=== PATIENT | female | born 1940 | race Caucasian/White ===

== ENCOUNTER 2021-10-10 10:37 | Outpatient (REF) | payer MEDICARE, SELFPAY ==
[2021-10-10 12:30] LABS: MANUAL DIFF FLAG NO
[2021-10-10 12:38] LABS: Basophils Percent Auto 0.2 % (0-2); Eosinophils Absolute Auto 0.1 X10*3/uL (0.0-0.4); Eosinophils Percent Auto 1.2 % (0-4); Hematocrit 35.7 % (37.0-47.0); Hemoglobin 11.6 g/dl (12.0-16.0); Imm Gran Abs Auto 0.02 X10*3/uL (0.00-0.03); Imm Gran Pct Auto 0.2 % (0.0-0.4); Lymphocytes Absolute Auto 1.8 X10*3/uL (1.2-4.9); Lymphocytes Percent Auto 16.3 % (20-40); Mean Corpuscular HGB Conc 32.5 g/dl (31.0-35.0); Mean Corpuscular Volume 89.3 fL (80.0-98.0); Mean Platelet Volume 9.6 fL (9.4-12.3); Monocytes Absolute Auto 0.9 X10*3/uL (0.1-1.2); Monocytes Percent Auto 7.6 % (2-11); Neutrophils Absolute Auto 8.4 x10*3/uL (2.0-8.3); Neutrophils Percent Auto 74.5 % (45-73); Platelet Count 331 X10*3/uL (160-400); Red Cell Distribution Width 12.6 % (11.0-16.0); White Blood Count 11.2 X10*3/uL (4.8-10.8)
[2021-10-10 13:04] LABS: Alanine Aminotransferase 11 U/L (0-31); Albumin Level 4.1 g/dL (3.5-5.0); Alkaline Phosphatase 80 U/L (39-117); Anion Gap 15 (12-20); Aspartate Amino Transferase 15 U/L (5-31); Bilirubin Total 1.2 mg/dL (0.0-1.0); Blood Urea Nitrogen 22 mg/dL (9-16); Calcium 9.9 mg/dL (8.4-10.2); Carbon Dioxide 29 mmol/L (22-29); Chloride 102 mmol/L (96-108); Cholesterol 153 mg/dL; Estimated Glomerular Filt Rate 59; Glucose Fasting 124 mg/dL (60-99); HDL Cholesterol 55 mg/dL; LDL Cholesterol Calculated 82 mg/dl; Potassium 3.9 mmol/L (3.3-5.1); Rheumatoid Factor < 15.0 IU/mL (<15.0); Sodium 142 mmol/L (135-145); Total Protein 6.9 g/dL (6.5-8.0); Triglycerides 84 mg/dL
[2021-10-10 13:25] LABS: Vitamin B12 461 pg/mL (200-900)
[2021-10-10 13:26] LABS: Vitamin D 25-OH Total 21.7 ng/mL (>30)
[2021-10-13 11:26] LABS: Anti Nuclear Antibody Screen NEGATIVE (NEGATIVE)
== END 2021-10-10 10:38 | disposition home or self-care (01) ==
LOC: HO.HMGCLDS 10:37
PROVIDERS: PCP Internal Medicine; Visit Provider Internal Medicine
DX: I10 Essential (primary) hypertension (principal); E78.00 Pure hypercholesterolemia, unspecified; M79.10 Myalgia, unspecified site
CPT/HCPCS: 36415; 80053; 80061; 82306; 82607; 85025; 86038; 86039; 86140; 86431

== ENCOUNTER 2021-10-20 10:27 | Outpatient (REF) | payer MEDICARE, SELFPAY ==
[2021-10-20 11:34] LABS: Estimated Average Glucose 120 mg/dL; Hemoglobin A1c % 5.8 %
[2021-10-20 11:50] LABS: Anion Gap 14 (12-20); Blood Urea Nitrogen 18 mg/dL (9-16); C Reactive Protein 6.24 mg/dL (< or = 0.50); Calcium 9.3 mg/dL (8.4-10.2); Carbon Dioxide 28 mmol/L (22-29); Chloride 103 mmol/L (96-108); Estimated Glomerular Filt Rate 56; Glucose Random 113 mg/dL (60-115); Potassium 3.8 mmol/L (3.3-5.1); Sodium 141 mmol/L (135-145)
[2021-10-20 12:27] LABS: Erythrocyte Sedimentation Rate 62 MM/HR (0-20)
== END 2021-10-20 10:28 | disposition home or self-care (01) ==
LOC: HO.HMGCLDS 10:27
PROVIDERS: PCP Internal Medicine; Visit Provider Internal Medicine
DX: M79.10 Myalgia, unspecified site (principal); R79.82 Elevated C-reactive protein (CRP); R73.9 Hyperglycemia, unspecified; I10 Essential (primary) hypertension
CPT/HCPCS: 36415; 80048; 82550; 83036; 85652; 86140

== ENCOUNTER 2021-10-31 10:26 | Outpatient (REF) | payer MEDICARE, SELFPAY ==
[2021-10-31 14:45] LABS: Erythrocyte Sedimentation Rate 58 MM/HR (0-20)
== END 2021-10-31 10:27 | disposition home or self-care (01) ==
LOC: HO.HMGCLDS 10:26
PROVIDERS: PCP Internal Medicine; Visit Provider Internal Medicine
DX: R79.82 Elevated C-reactive protein (CRP) (principal); M79.10 Myalgia, unspecified site
CPT/HCPCS: 36415; 85652; 86140

== ENCOUNTER 2022-01-06 09:35 | Outpatient (REF) | payer MEDICARE, SELFPAY ==
[2022-01-06 11:33] LABS: MANUAL DIFF FLAG NO
[2022-01-06 11:42] LABS: Basophils Percent Auto 0.2 % (0-2); Eosinophils Percent Auto 0.3 % (0-4); Hematocrit 39.9 % (37.0-47.0); Imm Gran Abs Auto 0.07 X10*3/uL (0.00-0.03); Imm Gran Pct Auto 0.6 % (0.0-0.4); Lymphocytes Absolute Auto 4.2 X10*3/uL (1.2-4.9); Lymphocytes Percent Auto 38.3 % (20-40); Mean Corpuscular HGB Conc 32.6 g/dl (31.0-35.0); Mean Corpuscular Hemoglobin 29.3 pg (27.0-33.0); Mean Corpuscular Volume 89.9 fL (80.0-98.0); Mean Platelet Volume 9.4 fL (9.4-12.3); Monocytes Absolute Auto 0.8 X10*3/uL (0.1-1.2); Monocytes Percent Auto 7.2 % (2-11); Neutrophils Absolute Auto 5.9 x10*3/uL (2.0-8.3); Neutrophils Percent Auto 53.4 % (45-73); Platelet Count 285 X10*3/uL (160-400); Red Blood Count 4.44 X10*6/uL (4.20-5.50); Red Cell Distribution Width 14.4 % (11.0-16.0)
[2022-01-06 12:23] LABS: Alanine Aminotransferase 27 U/L (0-31); Albumin Level 4.6 g/dL (3.5-5.0); Alkaline Phosphatase 64 U/L (39-117); Aspartate Amino Transferase 24 U/L (5-31); Bilirubin Total 1.1 mg/dL (0.0-1.0); Blood Urea Nitrogen 26 mg/dL (9-16); C Reactive Protein 0.32 mg/dL (< or = 0.50); Calcium 9.8 mg/dL (8.4-10.2); Estimated Glomerular Filt Rate 37; Glucose Random 110 mg/dL (60-115); Total Protein 7.2 g/dL (6.5-8.0)
[2022-01-06 12:40] LABS: Anion Gap 16 (12-20); Carbon Dioxide 29 mmol/L (22-29); Chloride 100 mmol/L (96-108); Potassium 2.8 mmol/L (3.3-5.1); Sodium 142 mmol/L (135-145)
== END 2022-01-06 09:36 | disposition home or self-care (01) ==
LOC: HO.HMGCLDS 09:35
PROVIDERS: PCP Internal Medicine; Visit Provider Internal Medicine
DX: I10 Essential (primary) hypertension (principal); M35.3 Polymyalgia rheumatica
CPT/HCPCS: 36415; 80053; 85025; 86140

== ENCOUNTER 2022-01-27 08:47 | Outpatient (REF) | payer MEDICARE, SELFPAY ==
[2022-01-27 12:00] LABS: Anion Gap 14 (12-20); Blood Urea Nitrogen 28 mg/dL (9-16); Calcium 9.6 mg/dL (8.4-10.2); Carbon Dioxide 28 mmol/L (22-29); Chloride 102 mmol/L (96-108); Estimated Glomerular Filt Rate 36; Glucose Random 137 mg/dL (60-115); Potassium 3.8 mmol/L (3.3-5.1); Sodium 140 mmol/L (135-145)
== END 2022-01-27 08:48 | disposition home or self-care (01) ==
LOC: HO.HMGCLDS 08:47
PROVIDERS: PCP Internal Medicine; Visit Provider Internal Medicine
DX: I12.9 Hypertensive chronic kidney disease with stage 1 through stage 4 chronic kidney disease, or unspecified chronic kidney disease (principal); E87.6 Hypokalemia
CPT/HCPCS: 36415; 80048

== ENCOUNTER 2022-09-23 11:17 | Outpatient (REF) | payer MEDICARE, SELFPAY ==
--- NOTE | ~2022-09-23 | XR_ITS ---
EXAMINATION: XR LUMBOSACRAL SPINE CLINICAL INFORMATION: Lower back pain COMPARISON: None TECHNIQUE: Three views of the lumbosacral spine. FINDINGS: No acute fracture or subluxation. Grade 1 anterolisthesis of L3 on L4. Alignment otherwise maintained. Disc space narrowing at L3-L4 and L4-L5. Diffuse facet arthropathy. Mild levoscoliosis centered at L2-L3. The sacroiliac joints are symmetric. The sacrum is intact. Normal bowel gas pattern. XR/XR lumbar spine 2-3V IMPRESSION: Moderate degenerative changes of the lumbar spine.
== END 2022-09-23 11:18 | disposition home or self-care (01) ==
LOC: HO.HMGCX 11:17
PROVIDERS: PCP Internal Medicine; Visit Provider Internal Medicine
DX: M54.50 Low back pain, unspecified (principal)
CPT/HCPCS: 72100

== ENCOUNTER 2022-12-23 07:31 | Outpatient (REF) | payer MEDICARE, SELFPAY ==
[2022-12-23 11:19] LABS: MANUAL DIFF FLAG NO
[2022-12-23 11:25] LABS: Basophils Percent Auto 0.2 % (0-2); Eosinophils Absolute Auto 0.1 X10*3/uL (0.0-0.4); Eosinophils Percent Auto 1.1 % (0-4); Hematocrit 39.2 % (37.0-47.0); Hemoglobin 12.5 g/dl (12.0-16.0); Imm Gran Abs Auto 0.03 X10*3/uL (0.00-0.03); Imm Gran Pct Auto 0.3 % (0.0-0.4); Lymphocytes Absolute Auto 3.7 X10*3/uL (1.2-4.9); Lymphocytes Percent Auto 42.8 % (20-40); Mean Corpuscular HGB Conc 31.9 g/dl (31.0-35.0); Mean Corpuscular Hemoglobin 28.9 pg (27.0-33.0); Mean Corpuscular Volume 90.5 fL (80.0-98.0); Mean Platelet Volume 9.9 fL (9.4-12.3); Monocytes Absolute Auto 0.6 X10*3/uL (0.1-1.2); Monocytes Percent Auto 6.7 % (2-11); Neutrophils Absolute Auto 4.3 x10*3/uL (2.0-8.3); Neutrophils Percent Auto 48.9 % (45-73); Platelet Count 327 X10*3/uL (160-400); Red Blood Count 4.33 X10*6/uL (4.20-5.50); Red Cell Distribution Width 12.5 % (11.0-16.0); White Blood Count 8.7 X10*3/uL (4.8-10.8)
[2022-12-23 11:43] LABS: Appearance Urine Cloudy; Color Urine Yellow; Glucose Urine UA Negative (Negative); Leukocyte Esterase Urine Moderate (2+) (Negative); Nitrite Urine Negative (Negative); PH 5.5 (5.0-9.0); Specific Gravity - Urine 1.015 (1.005-1.025); UMIC TRIGGER UA YES; Urine Blood Small (1+) (Negative); Urine Ketones Negative (Negative); Urine Protein Negative (Neg-Trace)
[2022-12-23 12:04] LABS: Bacteria Urine Trace (None Seen); Hyaline Casts Urine 0-2 /LPF (0-2); RBC Urine 0-2 /HPF (0-2)
[2022-12-23 12:05] LABS: Albumin Level 4.1 g/dL (3.5-5.0); Anion Gap 12 (12-20); Blood Urea Nitrogen 26 mg/dL (9-16); Calcium 9.4 mg/dL (8.4-10.2); Carbon Dioxide 32 mmol/L (22-29); Chloride 104 mmol/L (96-108); Estimated Glomerular Filt Rate 37; Magnesium 2.1 mg/dL (1.6-2.6); Potassium 3.8 mmol/L (3.3-5.1); Sodium 144 mmol/L (135-145); Vitamin D 25-OH Total 19.5 ng/mL (>30)
[2022-12-23 12:19] LABS: Creatinine Urine 172.77 mg/dL; Microalbum/Creatinine Ratio Ur 27.7 ug/mg cr; Protein/Creatinine Ratio, Ur 0.14 (<0.2); Total Protein Urine Random 25 mg/dL (<12)
[2022-12-25 05:33] LABS: HBS Num1 0.47 mIU/mL (0-7.99); HBc Num1 0.06 S/CO (0.00-0.79); Hepatitis B Core Antibody Nonreactive (Nonreactive); ~HepC Num1 0.06 S/CO (0.00-0.79); ~Hepatitis B Surface Antibody NONREACTIVE (Nonreactive); ~Hepatitis C Antibody Nonreactive (Nonreactive)
[2022-12-25 12:24] LABS: Calcium (PTHI) 9.4 mg/dL (8.6-10.4); PTHI 77 pg/mL (16-77)
[2022-12-25 14:47] LABS: Complement C3 138 mg/dL
[2022-12-26 19:48] LABS: Prot Elec - Alpha1 0.3 g/dL (0.2-0.3); Prot Elec - Alpha2 0.9 g/dL (0.5-0.9); Prot Elec - Beta 1 0.5 g/dL (0.4-0.6); Prot Elec - Beta 2 0.3 g/dL (0.2-0.5); Prot Elec - Gamma 0.6 g/dL (0.8-1.7); Prot Elec - Total Protein 6.6 g/dL (6.1-8.1)
[2022-12-28 11:54] LABS: Anti Nuclear Antibody Screen NEGATIVE (NEGATIVE)
[2022-12-31 18:04] LABS: Kappa, Serum 145 mg/dL (176-443); Lambda, Serum 66 mg/dL (91-240)
== END 2022-12-23 07:32 | disposition home or self-care (01) ==
LOC: HO.HMGCLDS 07:31
PROVIDERS: PCP Internal Medicine; Visit Provider Internal Medicine Nephrology
DX: E11.22 Type 2 diabetes mellitus with diabetic chronic kidney disease (principal); N18.32 Chronic kidney disease, stage 3b; N25.0 Renal osteodystrophy; R82.90 Unspecified abnormal findings in urine
CPT/HCPCS: 36415; 80051; 81001; 82040; 82043; 82306; 82310; 82565; 83735; 83883; 83970; 84100; 84156; 84165; 84520; 85025; 86038; 86039; 86160; 86704; 86706; 86803; 87086

== ENCOUNTER 2023-02-25 14:54 | Outpatient (REF) | payer MEDICARE, SELFPAY ==
--- NOTE | ~2023-02-25 | US_ITS ---
EXAMINATION: US RETROPERITONEAL LIMITED (RENAL ONLY) CLINICAL INFORMATION: Chronic kidney disease, stage 3b. COMPARISON: Urinary bladder dated 07/10/2020. Renals only ultrasound dated 05/03/2020. TECHNIQUE: Real-time imaging of the kidneys. FINDINGS: RIGHT KIDNEY: 9.5 x 4.5 x 4.6 cm (SAG x AP x TRV). The kidney is normal in size, contour, and echogenicity. Renal cortical thickness is normal. No calculi or focal parenchymal lesions. No hydronephrosis. LEFT KIDNEY: 10.1 x 4.0 x 4.7 cm (SAG x AP x TRV). The kidney is normal in size, contour, and echogenicity. Renal cortical thickness is normal. No calculi or focal parenchymal lesions. No hydronephrosis. US/US renal BI IMPRESSION: No renal calculi or hydronephrosis of either kidney.
== END 2023-02-25 14:55 | disposition home or self-care (01) ==
LOC: HO.HMGCX 14:54
PROVIDERS: PCP Internal Medicine; Visit Provider Internal Medicine Nephrology
DX: I12.9 Hypertensive chronic kidney disease with stage 1 through stage 4 chronic kidney disease, or unspecified chronic kidney disease (principal); E11.22 Type 2 diabetes mellitus with diabetic chronic kidney disease; N18.32 Chronic kidney disease, stage 3b; N25.0 Renal osteodystrophy
CPT/HCPCS: 76775

== ENCOUNTER 2023-03-01 19:19 | Outpatient (REF) | payer MEDICARE, SELFPAY ==
--- NOTE | ~2023-03-01 | MR_ITS ---
EXAMINATION: MR LUMBAR SPINE WITHOUT CONTRAST CLINICAL INFORMATION: Lower back pain, right leg weakness, numbness, and pain COMPARISON: None TECHNIQUE: MRI of the lumbar spine was obtained using routine sequences without contrast. FINDINGS: Leftward convexity of the lumbar spine centered at L3. There is some left lateral listhesis of L3 on L4. Grade 1 anterolisthesis of L3 on L4 No suspicious marrow signal or focal osseous lesion. The vertebral body heights are maintained. Multilevel disc desiccation and height loss The conus medullaris terminates at the level of L1-L2. The distal spinal cord is normal in appearance. The cauda equina nerve roots appear normal. There is asymmetric fatty atrophy of the right lumbar paravertebral musculature Limited evaluation of the intra-abdominal structures without significant abnormalities. The abdominal aorta is of normal contour and caliber. SPINAL LEVELS: L1-L2: No significant spinal canal or neuroforaminal narrowing. Mild facet arthropathy. L2-L3: Moderate to severe facet arthropathy with small bilateral joint effusions, with mentum flavum thickening, shallow disc bulge. Mild central spinal canal stenosis. No significant neural foraminal narrowing. L3-L4: Anterolisthesis with posterior disc uncovering and superimposed right eccentric disc bulge. Severe facet arthropathy, right greater than left. Ligamentum flavum thickening. Severe spinal canal stenosis mild left and severe right neural foraminal narrowing with impingement of the exiting right L3 nerve root. L4-L5: Moderate facet arthropathy, ligamentum flavum thickening, left eccentric disc bulge. Left greater than right subarticular zone narrowing. Mild central spinal canal stenosis. Mild right and moderate left neural foraminal narrowing with likely extraforaminal impingement of the left L4 nerve root by a lateral disc osteophyte complex. L5-S1: Moderate facet arthropathy with left greater than right joint effusions. Left eccentric disc osteophyte complex. There is partial effacement of the thecal sac related to prominent epidural fat. Moderate left neural foraminal narrowing with likely extraforaminal impingement of the left L5 nerve root related to a left lateral disc osteophyte complex. MR/MR lumbar spine wo con IMPRESSION: 1. Leftward convexity of the lumbar spine centered at L3 with left lateral listhesis of L3 on L4 and grade 1 anterolisthesis of L3 on L4. 2. At L3-L4, there is severe spinal canal stenosis and severe right neural foraminal narrowing with impingement of the exiting right L3 nerve root. 3. At L4-L5, there is left greater than right subarticular zone narrowing and moderate left neural foraminal narrowing with likely extraforaminal impingement of the left L4 nerve root by a lateral disc osteophyte complex. 4. At L5-S1, there is partial effacement of the thecal sac related to prominent epidural fat and moderate left neural foraminal narrowing with likely extraforaminal impingement of the left L5 nerve root by a left lateral disc osteophyte complex.
== END 2023-03-01 19:20 | disposition home or self-care (01) ==
LOC: HO.MRI 19:19
PROVIDERS: PCP Internal Medicine; Visit Provider Internal Medicine
DX: M54.16 Radiculopathy, lumbar region (principal)
CPT/HCPCS: 72148

== ENCOUNTER 2023-05-17 20:16 | Inpatient (IN) | payer MEDICARE, SELFPAY ==
--- NOTE | ~2023-05-17 | XR_ITS ---
EXAMINATION: XR CHEST CLINICAL INFORMATION: New onset of shortness of breath and atrial fibrillation with weakness COMPARISON: None available. TECHNIQUE: Frontal view of the chest was obtained. FINDINGS: No significant abnormality is noted involving the heart, lungs, mediastinum, bony thorax or soft tissues. Heart size normal and there is no evidence of CHF or pleural effusions. Degenerative changes are seen in both shoulders. XR/XR chest 1V IMPRESSION: No acute intrathoracic disease.
[2023-05-17 20:29] VITALS: BP 105/41; PULSE 130; O2SAT 98
--- NOTE | 2023-05-17 20:29 | ECG_ITS ---
Test Reason : AFIB Blood Pressure : / mmHG Vent. Rate : 100 BPM Atrial Rate : 000 BPM P-R Int : 000 ms QRS Dur : 070 ms QT Int : 346 ms P-R-T Axes : 000 062 147 degrees QTc Int : 446 ms Atrial fibrillation Nonspecific ST and T wave abnormality Abnormal ECG No previous ECGs available Referred By: Generic ED Physician Electronically Signed By:GUILLERMO ANGELO
[2023-05-17 20:36] VITALS: BP 109/47; PULSE 103; RESP 16; O2SAT 99; BMI 31.4
--- NOTE | 2023-05-17 21:00 | ED.GENADULT ---
HPI - General Adult General Chief complaint: Arrhythmia/Palpitations Stated complaint: Weakness x1-2 wks Time Seen by Provider: 05/17/23 20:36 Source: patient and EMS Mode of arrival: EMS History of Present Illness HPI narrative: 82-year-old female who is brought in by EMS from home with 1 and half weeks of increasing weakness, decreased oral intake. However, when I speak with the patient she denies any shortness of breath or chest pain, denies any fevers or chills, nausea, vomiting or abdominal discomfort. When asked if she has any current complaints she denies everything and states that she does not know why she is here. Related Data Allergies Allergy/AdvReac Type Severity Reaction Status Date / Time No Known Allergies Allergy Verified 05/17/23 20:44 Review of Systems Review of Systems: Pertinent positives and negatives as stated in [facility] Past Medical History Source: nursing notes reviewed Social History Social History Alcohol intake: never Smoked in Last 30 Days: No Use of substances other than those prescribed or required for medical reasons: No Advance Directives: No Advance Directives Information Provided: No Physical Exam ED Vital Signs: Vital Signs - 24 hr 05/17/23 20:36 Pulse Rate 103 H Respiratory Rate 16 Blood Pressure 109/47 L Pulse Oximetry 99 Oxygen Delivery Method Room Air BMI result Body Mass Index 31.4 VITAL SIGNS: Reviewed. GENERAL: Well developed, well nourished, in no acute distress. HEAD: Normocephalic/atraumatic EYES: PERRLA, EOMI EARS: Ext canals without abnormality OROPHARYNX: no oral lesions noted, posterior pharynx clear LUNGS: Normal breath sounds. No adventitious sounds or accessory muscle use. SpO2<99> CARDIOVASCULAR: Regular rate and rhythm without noted murmurs, no JVD or lower extremity edema. ABDOMEN: Soft, non-tender, non-distended with bowel sounds. MUSCULOSKELETAL: No tenderness, deformities, or effusions noted on gross inspection. EXTREMITIES: No cyanosis, clubbing or edema. SKIN: Inspection of the skin reveals no rashes NEUROLOGIC: Alert and oriented x 3. Strength and sensation to light touch were grossly intact x 4. Medications Administered Discontinued Medications Generic Name Dose Route Start Last Admin Trade Name Freq PRN Reason Stop Dose Admin Metoprolol Tartrate 2.5 mg 05/17/23 20:55 05/17/23 21:38 Metoprolol Tartrate 5 Mg/5 Ml Vial IVPUSH 05/17/23 20:56 Not Given ONCE ONE Medical Decision Making Medical Decision Making MDM Narrative: 82-year-old female who arrives appearing comfortable and has no acute complaints, will evaluate for reports of weakness and decreased oral intake. DDX: Infection, anemia, electrolyte abnormality. I reviewed all investigations and there is no leukocytosis or left shift, there is a new normocytic anemia without thrombocytopenia and coagulation studies are within normal limits. Chemistry indices are without electrolyte abnormalities, there is no ANA CRISTINA there is an elevated BUN but appears to be chronically stable. Initial high sensitivity troponin is 189.4 but patient did arrive in atrial fibrillation with RVR with resolution of the rapid ventricular rate, however her blood pressure has continued to trend downward and will resuscitate with 1 L of IV fluids. Troponin will be repeated, there were no obvious ischemic changes on patient's EKG. In addition, she has no complaints of chest pain. Signed out to Dr. Oconnor. -follow-up urinalysis, 2nd troponin, blood pressure response to 1 L IV fluids Differential Diagnosis Differential Diagnoses: The differential diagnosis associated with the presentation includes Please see the discussion above Admission/Observation Consideration of admission/observation: Escalation of care including admission/observation considered Please see the discussion above Lab Data 05/17/23 20:58 05/17/23 20:58 Labs: Lab Results 05/17/23 05/17/23 05/17/23 Range/Units 20:58 20:58 20:58 WBC 9.7 (4.8-10.8) X10*3/uL RBC 3.45 L D (4.20-5.50) X10*6/uL Hgb 10.6 L (12.0-16.0) g/dl Hct 32.8 L (37.0-47.0) % MCV 95.1 (80.0-98.0) fL MCH 30.7 (27.0-33.0) pg MCHC 32.3 (31.0-35.0) g/dl RDW 15.6 (11.0-16.0) % Plt Count 198 D (160-400) X10*3/uL MPV 9.7 (9.4-12.3) fL Immature Gran % (Auto) 0.9 H (0.0-0.4) % Neut % (Auto) 72.9 (45-73) % Lymph % (Auto) 18.0 L (20-40) % [place] % (Auto) 7.9 (2-11) % Eos % (Auto) 0.2 (0-4) % Baso % (Auto) 0.1 (0-2) % Lymph # (Auto) 1.7 (1.2-4.9) X10*3/uL [place] # (Auto) 0.8 (0.1-1.2) X10*3/uL Eos # (Auto) 0.0 (0.0-0.4) X10*3/uL Baso # (Auto) 0.0 (0.0-0.2) X10*3/uL Abs Immat Gran (auto) 0.09 H (0.00-0.03) X10*3/uL Absolute Neuts (auto) 7.1 (2.0-8.3) x10*3/uL Absolute Nucleated RBC 0.060 H (0.0-0.012) X10*3/uL Nucleated RBC % (auto) 0.6 H (0.0-0.2) /100WBC PT (11.1-13.3) SEC INR (0.9-1.1) Sodium 142 (135-145) mmol/L Potassium 3.7 (3.3-5.1) mmol/L Chloride 105 (96-108) mmol/L Carbon Dioxide 24 (22-29) mmol/L Anion Gap 17 (12-20) BUN 32 H (9-16) mg/dL Creatinine 1.05 (0.5-1.4) mg/dL Estim Creat Clear Calc 37.0 Estimated GFR 50 Random Glucose 81 (60-115) mg/dL Calcium 9.4 (8.4-10.2) mg/dL Troponin I High Sens 189.4 H* (<3.5-17.0) ng/L 05/17/23 Range/Units 20:58 WBC (4.8-10.8) X10*3/uL RBC (4.20-5.50) X10*6/uL Hgb (12.0-16.0) g/dl Hct (37.0-47.0) % MCV (80.0-98.0) fL MCH (27.0-33.0) pg MCHC (31.0-35.0) g/dl RDW (11.0-16.0) % Plt Count (160-400) X10*3/uL MPV (9.4-12.3) fL Immature Gran % (Auto) (0.0-0.4) % Neut % (Auto) (45-73) % Lymph % (Auto) (20-40) % [place] % (Auto) (2-11) % Eos % (Auto) (0-4) % Baso % (Auto) (0-2) % Lymph # (Auto) (1.2-4.9) X10*3/uL [place] # (Auto) (0.1-1.2) X10*3/uL Eos # (Auto) (0.0-0.4) X10*3/uL Baso # (Auto) (0.0-0.2) X10*3/uL Abs Immat Gran (auto) (0.00-0.03) X10*3/uL Absolute Neuts (auto) (2.0-8.3) x10*3/uL Absolute Nucleated RBC (0.0-0.012) X10*3/uL Nucleated RBC % (auto) (0.0-0.2) /100WBC PT 10.7 L (11.1-13.3) SEC INR 0.9 (0.9-1.1) Sodium (135-145) mmol/L Potassium (3.3-5.1) mmol/L Chloride (96-108) mmol/L Carbon Dioxide (22-29) mmol/L Anion Gap (12-20) BUN (9-16) mg/dL Creatinine (0.5-1.4) mg/dL Estim Creat Clear Calc Estimated GFR Random Glucose (60-115) mg/dL Calcium (8.4-10.2) mg/dL Troponin I High Sens (<3.5-17.0) ng/L Independent Interpretation I performed an independent interpretation of an: EKG Interpretation: Atrial fibrillation with RVR, HR-100, no STEMI, QRS/QTC is within normal limits. Discharge Plan Discharge Clinical Impression: Weakness Patient Disposition: Still a Patient
[2023-05-17 21:07] LABS: MANUAL DIFF FLAG NO
[2023-05-17 21:10] LABS: Basophils Percent Auto 0.1 % (0-2); Eosinophils Percent Auto 0.2 % (0-4); Hematocrit 32.8 % (37.0-47.0); Hemoglobin 10.6 g/dl (12.0-16.0); Imm Gran Abs Auto 0.09 X10*3/uL (0.00-0.03); Imm Gran Pct Auto 0.9 % (0.0-0.4); Lymphocytes Absolute Auto 1.7 X10*3/uL (1.2-4.9); Mean Corpuscular HGB Conc 32.3 g/dl (31.0-35.0); Mean Corpuscular Hemoglobin 30.7 pg (27.0-33.0); Mean Corpuscular Volume 95.1 fL (80.0-98.0); Mean Platelet Volume 9.7 fL (9.4-12.3); Monocytes Absolute Auto 0.8 X10*3/uL (0.1-1.2); Monocytes Percent Auto 7.9 % (2-11); NRBC Pct Auto 0.6 /100WBC (0.0-0.2); Neutrophils Absolute Auto 7.1 x10*3/uL (2.0-8.3); Neutrophils Percent Auto 72.9 % (45-73); Platelet Count 198 X10*3/uL (160-400); Red Blood Count 3.45 X10*6/uL (4.20-5.50); Red Cell Distribution Width 15.6 % (11.0-16.0); White Blood Count 9.7 X10*3/uL (4.8-10.8)
[2023-05-17 21:16] LABS: INTERNATIONAL NORM RATIO 0.9 (0.9-1.1); Prothrombin Time 10.7 SEC (11.1-13.3)
[2023-05-17 21:21] LABS: Anion Gap 17 (12-20); Blood Urea Nitrogen 32 mg/dL (9-16); Calcium 9.4 mg/dL (8.4-10.2); Carbon Dioxide 24 mmol/L (22-29); Chloride 105 mmol/L (96-108); Estimated Glomerular Filt Rate 50; Glucose Random 81 mg/dL (60-115); Potassium 3.7 mmol/L (3.3-5.1); Sodium 142 mmol/L (135-145)
[2023-05-17 21:39] LABS: Troponin-I High Sensitivity 189.4 ng/L (<3.5-17.0)
[2023-05-17] MEDS: 0.9 % Sodium Chloride 1,000 ML 999 ML IV (23:59)
[2023-05-18] VITALS (8 sets, daily range): BP systolic 106–172; BP diastolic 48–97; PULSE 65–113; RESP 10–22; TEMP 36.1–36.9; O2SAT 93–99; BMI 32.9
[2023-05-18 00:33] LABS: Troponin-I High Sensitivity 159.3 ng/L (<3.5-17.0)
[2023-05-18 02:15] LABS: Appearance Urine Cloudy; Color Urine Yellow; Glucose Urine UA Negative (Negative); Leukocyte Esterase Urine Moderate (2+) (Negative); Nitrite Urine Positive (Negative); PH 5.5 (5.0-9.0); UMIC TRIGGER UACC YES; Urine Blood Trace (Negative); Urine Ketones Negative (Negative); Urine Protein 30 (1+) mg/dL (Neg-Trace)
[2023-05-18 02:24] LABS: Bacteria Urine 4+ (None Seen); RBC Urine 0-2 /HPF (0-2); UACC Culture Trigger YES; WBC Urine 21-50 /HPF (0-5)
[2023-05-18] MEDS: 0.9 % Sodium Chloride 1,000 ML 200 ML IVCONT (02:58)
[2023-05-18] MEDS: cefTRIAXone sodium 1 GM in 0.9 % Sodium Chloride 50 ML IV ×2 (02:59→20:30)
--- NOTE | 2023-05-18 03:20 | P.HPHOSP_ITS ---
History of Present Illness Date of Service: 05/18/23 Chief Complaint: AMS This is a 82-year-old female with pertinent history of hzb-hibgchu-evfxvyggj diabetes mellitus, mood disorder, chronic back pain, essential hypertension who was sent to the emergency department for evaluation of altered mentation and generalized weakness. Patient is a poor historian and does not know why she is in the hospital. She is only oriented to self. History obtained by ER provider. Patient was noted to be intermittently confused by family and she was sent for further evaluation. Also noted to have poor appetite, increased lethargy and generalized weakness. Unable to obtain review of systems. In the emergency department, urine was concerning for UTI and patient found to be in AFib with RVR Review of Systems Review of Systems: Yes Unobtainable due to mental status PMFSH Medical History Chronic back pain Mood disorder Non-insulin dependent type 2 diabetes mellitus Pertinent family history: Unable to obtain and not significant due to age Social History Alcohol intake: never Smoked in Last 30 Days: No Use of substances other than those prescribed or required for medical reasons: No Advance Directives: No Advance Directives Information Provided: No Meds Allergies Allergy/AdvReac Type Severity Reaction Status Date / Time No Known Allergies Allergy Verified 05/17/23 20:44 Active Medications: Current Medications Sodium Chloride (Ns) 1,000 mls @ 200 mls/hr IVCONT .Q5H ONE Stop: 05/18/23 07:29 Last Admin: 05/18/23 02:58 Dose: 200 mls/hr Physical Exam Vital Signs and Narrative: Vital Signs: Last Vital Signs Temp 98.1 F 05/18/23 02:09 Pulse 113 H 05/18/23 02:09 Resp 16 05/18/23 02:09 BP 106/57 L 05/18/23 02:09 Pulse Ox 97 05/18/23 02:09 O2 Del Method Room Air 05/18/23 02:09 BMI result Body Mass Index 31.4 Elderly female lying in bed in no distress Neck supple, no JVD Irregularly irregular, S1-S2 heard Regular breath sounds bilaterally, no wheezing or crackles appreciated Abdomen soft nontender, no guarding, no rigidity Patient is awake, alert and oriented to self, disoriented to place, time and person ; no focal motor deficit Results Labs 05/17/23 20:58 05/17/23 20:58 Labs: Laboratory Results - last 24 hr 05/17/23 05/17/23 05/17/23 20:58 20:58 20:58 MCV 95.1 MCH 30.7 MCHC 32.3 RDW 15.6 Plt Count 198 D MPV 9.7 Immature Gran % (Auto) 0.9 H Neut % (Auto) 72.9 Lymph % (Auto) 18.0 L [place] % (Auto) 7.9 Eos % (Auto) 0.2 Baso % (Auto) 0.1 Lymph # (Auto) 1.7 [place] # (Auto) 0.8 Eos # (Auto) 0.0 Baso # (Auto) 0.0 Abs Immat Gran (auto) 0.09 H Absolute Neuts (auto) 7.1 Absolute Nucleated RBC 0.060 H Nucleated RBC % (auto) 0.6 H PT 10.7 L INR 0.9 Anion Gap 17 Estim Creat Clear Calc 37.0 Estimated GFR 50 Random Glucose 81 Calcium 9.4 Urine Color Urine Appearance Urine pH Ur Specific [place] Urine Protein Urine Glucose (UA) Urine Ketones Urine Blood Urine Nitrite Ur Leukocyte Esterase Urine RBC Urine WBC Ur Squamous Epith Cells Urine Bacteria Hyaline Casts 05/18/23 02:08 MCV MCH MCHC RDW Plt Count MPV Immature Gran % (Auto) Neut % (Auto) Lymph % (Auto) [place] % (Auto) Eos % (Auto) Baso % (Auto) Lymph # (Auto) [place] # (Auto) Eos # (Auto) Baso # (Auto) Abs Immat Gran (auto) Absolute Neuts (auto) Absolute Nucleated RBC Nucleated RBC % (auto) PT INR Anion Gap Estim Creat Clear Calc Estimated GFR Random Glucose Calcium Urine Color Yellow Urine Appearance Cloudy Urine pH 5.5 Ur Specific [place] 1.020 Urine Protein 30 (1+) H Urine Glucose (UA) Negative Urine Ketones Negative Urine Blood Trace H Urine Nitrite Positive H Ur Leukocyte Esterase Moderate (2+) H Urine RBC 0-2 Urine WBC 21-50 H Ur Squamous Epith Cells 3-5 Urine Bacteria 4+ Hyaline Casts 3-5 Imaging Radiologist's Impressions: Impressions Chest X-Ray 05/17/23 20:45 IMPRESSION: No acute intrathoracic disease. Assessment and Plan (1) Acute UTI: Status: Acute (2) Atrial fibrillation with RVR: Status: Acute (3) Encephalopathy: Status: Acute Plan This is a 82-year-old female with pertinent history of rel-sykislq-ljszcuixo diabetes mellitus, mood disorder, chronic back pain, essential hypertension who was sent to the emergency department for evaluation of altered mentation and generalized weakness. #. Acute metabolic encephalopathy due to acute UTI. Will admit patient and initiate empiric IV antibiotics. Follow urine culture. Monitor mentation #. Generalized weakness in the setting of above. Consulted PT to evaluate and treat #. AFib with RVR. ?new onset. Patient given IV metoprolol in the ER. Obtaining TSH and echocardiogram. Consulting cardiology. Chads Vasc score 5 #. Mood disorder. Continue home mood stabilizers #. Vvk-jewphee-pwzlbfzef diabetes mellitus type 2. Hold glipizide. Initiating Accu-Cheks with sliding scale insulin Med rec pending DVT prophylaxis: Lovenox DNR/DNI Admit as inpatient and will require two night minimum hospital stay for IV antibiotics Time Spent With Patient Time: Total time managing care of this patient today ____ minutes. Quality Stroke Does the patient have a stroke diagnosis?: No VTE Prior VTE?: No VTE Risk Level:: Medical - moderate - high VTE Device Contraindication: Treatment Not Indicated VTE Drug Contraindication: N/A - Med Ordered
[2023-05-18 04:05] LABS: Thyroid Stimulating Hormone 3.07 uIU/mL (0.32-4.0)
[2023-05-18 05:36] LABS: MANUAL DIFF FLAG NO
[2023-05-18 05:37] LABS: Basophils Percent Auto 0.1 % (0-2); Eosinophils Percent Auto 0.3 % (0-4); Hematocrit 31.4 % (37.0-47.0); Imm Gran Abs Auto 0.07 X10*3/uL (0.00-0.03); Imm Gran Pct Auto 0.7 % (0.0-0.4); Lymphocytes Absolute Auto 2.1 X10*3/uL (1.2-4.9); Lymphocytes Percent Auto 20.3 % (20-40); Mean Corpuscular HGB Conc 31.8 g/dl (31.0-35.0); Mean Corpuscular Hemoglobin 30.2 pg (27.0-33.0); Mean Corpuscular Volume 94.9 fL (80.0-98.0); Mean Platelet Volume 10.2 fL (9.4-12.3); Monocytes Absolute Auto 0.7 X10*3/uL (0.1-1.2); Monocytes Percent Auto 6.7 % (2-11); NRBC Pct Auto 0.4 /100WBC (0.0-0.2); Neutrophils Absolute Auto 7.3 x10*3/uL (2.0-8.3); Neutrophils Percent Auto 71.9 % (45-73); Platelet Count 179 X10*3/uL (160-400); Red Blood Count 3.31 X10*6/uL (4.20-5.50); Red Cell Distribution Width 15.5 % (11.0-16.0); White Blood Count 10.1 X10*3/uL (4.8-10.8)
[2023-05-18] MEDS: Acetaminophen 325 MG TABLET 650 MG PO (05:43)
[2023-05-18 05:57] LABS: Anion Gap 16 (12-20); Blood Urea Nitrogen 27 mg/dL (9-16); Calcium 8.4 mg/dL (8.4-10.2); Carbon Dioxide 18 mmol/L (22-29); Chloride 111 mmol/L (96-108); Creatinine Clr Calc Pharmacy 48.5; Estimated Glomerular Filt Rate > 60; Glucose Random 87 mg/dL (60-115); Potassium 3.3 mmol/L (3.3-5.1); Sodium 142 mmol/L (135-145)
[2023-05-18 07:36] LABS: Glucose, Whole Blood 104 mg/dL (60-115)
[2023-05-18] MEDS: 0.9 % Sodium Chloride Flush 3 ML SYRINGE IVFLUSH ×2 (08:00→20:30)
--- NOTE | 2023-05-18 08:02 | PC.NURSE ---
patient resting in stretcher, alert and oriented eating breakfast. patient respirations equal and unlabored, no signs of distress.
--- NOTE | 2023-05-18 08:11 | PC.NURSE ---
patient found to have saturated sacrum bandage, bandage removed revealing two wounds on either side of her coccyx. new bandage applied to coccyx. pads changed under patient
--- NOTE | 2023-05-18 08:11 | MHC.EDTECH ---
Assisted to clean pt. Applied new pad under pt. Repositioned to comfort. Bed in low, locked position. Call nogueira in reach, able to make needs known.
[2023-05-18] MEDS: Enoxaparin Sodium 40 MG/0.4 ML SYRINGE SUBCUT (08:47)
--- NOTE | 2023-05-18 09:30 | P.CONCA_ITS ---
History of Present Illness History of Present Illness Date of Service: 05/18/23 Chief complaint: Altered mentation Narrative: This is a cardiology consultation regarding atrial fibrillation. It seems that patient was actually sent to the hospital for evaluation of altered mentation/generalized weakness. According to H and P, described to be a poor historian and she did not know why she was not hospital and she was only oriented to self. She was apparently found to be confused by family and then sent in. However, patient seems to be better than as described. She states that she is here because ' her brain failed'. She is aware of the fact that she is actually at the hospital. Otherwise, no clear cut complaints like angina, shortness of breath or palpitations or in fact anything cardiac sounding. In this above admission, she was also found to be having atrial fibrillation rapid rate and there was a question of if it was new onset. Hence we have been consulted. It seems that she got IV metoprolol in the ER. She is now in sinus rhythm. Has no cardiac symptoms at all. Review of Systems Review of Systems: Yes all other systems are reviewed and are negative Constitutional: Constitutional: Reports as per HPI and Reports no additional constitutional complaints Eyes: Eyes: Reports as per HPI and Denies no additional eye complaints ENT: Denies system reviewed and no additional complaints, except as documented and Reports as per HPI Cardiovascular: Cardiovascular: Reports as per HPI, Reports no additional cardiovascular complaints, Denies acrocyanosis, Denies cool extremities, Denies chest pain, Denies leg edema, Denies lightheadedness, Denies palpitations and Denies dyspnea Respiratory: Respiratory: Reports as per HPI, Denies no additional respiratory complaints and Denies dyspnea Gastrointestinal: Gastrointestinal: Reports as per HPI and Denies no additional gastrointestinal complaints Genitourinary: Genitourinary: Reports as per HPI Musculoskeletal: Musculoskeletal: Reports no additional musculoskeletal complaints and Reports as per HPI Integumentary/Breasts: Skin/Breast: Reports system reviewed and no additional complaints, except as docu Neurologic: Reports system reviewed and no additional complaints, except as documented and Reports as per HPI Psychiatric: Psychiatric: Reports no additional psychiatric complaints and Reports as per HPI Endocrine: Endocrine: Reports no additional endocrine complaints, Reports as per HPI and Denies palpitations Hematologic/Lymphatic: Hematologic/Lymphatic: Reports no additional hematologic/lymphatic complaints and Reports as per HPI Allergic/Immunologic: Allergic/Immunologic: Reports no additional allergic/immunologic complaints and Reports as per [facility] Past Medical History Medical History Chronic back pain Mood disorder Non-insulin dependent type 2 diabetes mellitus Family History Family History Unknown No problems noted. Social History Social History Alcohol intake: never Smoked in Last 30 Days: No Use of substances other than those prescribed or required for medical reasons: No Advance Directives: No Advance Directives Information Provided: No Meds Allergies Allergy/AdvReac Type Severity Reaction Status Date / Time No Known Allergies Allergy Verified 05/17/23 20:44 Active Medications: Current Medications Acetaminophen (Acetaminophen 325 Mg Tablet) 650 mg PO Q6H PRN PRN Reason: Pain, Mild (Pain Scale 1-3) Last Admin: 05/18/23 05:43 Dose: 650 mg Dextrose (Dextrose 50 % 25 Gm/50 Ml Syringe) 25 gm IVPUSH Q15M PRN; Protocol PRN Reason: per Hypoglycemia Standing Ord. Enoxaparin Sodium (Enoxaparin Sodium 40 Mg/0.4 Ml Syringe) 40 mg SUBCUT Q24H ZAFAR Last Admin: 05/18/23 08:47 Dose: 40 mg Glucose (Glucose Gel 15 Gm Gel..Gram.) 15 gm PO Q15M PRN; Protocol PRN Reason: per Hypoglycemia Standing Ord. Ceftriaxone Sodium 1 gm/ (Sodium Chloride) 50 mls @ 100 mls/hr IV BEDTIME [facility] Insulin Human Lispro (Insulin Lispro 100 Unit/Ml 3 Ml Vial) 0 unit SUBCUT QIDACHS [facility]; Protocol Last Admin: 05/18/23 07:57 Dose: Not Given Melatonin (Melatonin 3 Mg Tablet) 6 mg PO BEDTIME PRN PRN Reason: Insomnia Ondansetron HCl (Ondansetron Hcl 4 Mg/2 Ml Vial) 4 mg IVPUSH Q8H PRN PRN Reason: Nausea and Vomiting Pharmacy Consult (Consult Rx Perform Med Rec) 1 each MISCELLANE ONCE ONE Stop: 05/18/23 09:22 Sodium Chloride (0.9 % Sodium Chloride Flush 3 Ml Syringe) 3 ml IVFLUSH QSHIFT [facility] Last Admin: 05/18/23 08:00 Dose: 3 ml Physical Exam Vital Signs: Vital Signs: Last Vital Signs Temp 98.4 F 05/18/23 08:00 Pulse 75 05/18/23 08:00 Resp 11 L 05/18/23 08:00 BP 141/48 H 05/18/23 08:00 Pulse Ox 93 05/18/23 08:00 O2 Del Method Room Air 05/18/23 08:00 BMI result Body Mass Index 31.4 Const: General: comfortable and no acute distress Orientation/consciousness: patient oriented x3 HEENT: Other: Unremarkable Head: Yes normal to inspection Neck: Neck: Yes normal visual inspection Chest: Chest palpation & inspection: normal inspection of the chest Resp: Auscultation: clear to auscultation bilaterally Cardio: Palpation: normal PMI Heart sounds: S1 normal heart sound present, S2 normal heart sound present, no gallops, no murmurs and no rubs GI: Palpation (GI): Soft to palpation Back/Spine/Pelvis: Other: unremarkable Skin: General skin exam: no rashes or lesions noted Neuro: General: patient oriented x3 Extrem: General: Yes normal to inspection Psych: Mental Status: mental status grossly normal Objective Labs and Meds 05/18/23 05:08 05/18/23 05:08 Lab results: Laboratory Results - last 24 hr 05/17/23 05/17/23 05/17/23 20:58 20:58 20:58 WBC 9.7 RBC 3.45 L D Hgb 10.6 L Hct 32.8 L MCV 95.1 MCH 30.7 MCHC 32.3 RDW 15.6 Plt Count 198 D MPV 9.7 Immature Gran % (Auto) 0.9 H Neut % (Auto) 72.9 Lymph % (Auto) 18.0 L [place] % (Auto) 7.9 Eos % (Auto) 0.2 Baso % (Auto) 0.1 Lymph # (Auto) 1.7 [place] # (Auto) 0.8 Eos # (Auto) 0.0 Baso # (Auto) 0.0 Abs Immat Gran (auto) 0.09 H Absolute Neuts (auto) 7.1 Absolute Nucleated RBC 0.060 H Nucleated RBC % (auto) 0.6 H PT INR Sodium 142 Potassium 3.7 Chloride 105 Carbon Dioxide 24 Anion Gap 17 BUN 32 H Creatinine 1.05 Estim Creat Clear Calc 37.0 Estimated GFR 50 POC Glucose Random Glucose 81 Calcium 9.4 Troponin I High Sens 189.4 H* TSH 3.07 Urine Color Urine Appearance Urine pH Ur Specific [place] [employer] Urine Protein Urine Glucose (UA) Urine Ketones Urine Blood Urine Nitrite Ur Leukocyte Esterase Urine RBC Urine WBC Ur Squamous Epith Cells Urine Bacteria Hyaline Casts 05/17/23 05/17/23 05/18/23 20:58 23:45 02:08 WBC RBC Hgb Hct MCV MCH MCHC RDW Plt Count MPV Immature Gran % (Auto) Neut % (Auto) Lymph % (Auto) [place] % (Auto) Eos % (Auto) Baso % (Auto) Lymph # (Auto) [place] # (Auto) Eos # (Auto) Baso # (Auto) Abs Immat Gran (auto) Absolute Neuts (auto) Absolute Nucleated RBC Nucleated RBC % (auto) PT 10.7 L INR 0.9 Sodium Potassium Chloride Carbon Dioxide Anion Gap BUN Creatinine Estim Creat Clear Calc Estimated GFR POC Glucose Random Glucose Calcium Troponin I High Sens 159.3 H* TSH Urine Color Yellow Urine Appearance Cloudy Urine pH 5.5 Ur Specific [place] [employer] 1.020 Urine Protein 30 (1+) H Urine Glucose (UA) Negative Urine Ketones Negative Urine Blood Trace H Urine Nitrite Positive H Ur Leukocyte Esterase Moderate (2+) H Urine RBC 0-2 Urine WBC 21-50 H Ur Squamous Epith Cells 3-5 Urine Bacteria 4+ Hyaline Casts 3-5 05/18/23 05/18/23 05/18/23 05:08 05:08 07:32 WBC 10.1 RBC 3.31 L Hgb 10.0 L Hct 31.4 L MCV 94.9 MCH 30.2 MCHC 31.8 RDW 15.5 Plt Count 179 MPV 10.2 Immature Gran % (Auto) 0.7 H Neut % (Auto) 71.9 Lymph % (Auto) 20.3 [place] % (Auto) 6.7 Eos % (Auto) 0.3 Baso % (Auto) 0.1 Lymph # (Auto) 2.1 [place] # (Auto) 0.7 Eos # (Auto) 0.0 Baso # (Auto) 0.0 Abs Immat Gran (auto) 0.07 H Absolute Neuts (auto) 7.3 Absolute Nucleated RBC 0.040 H Nucleated RBC % (auto) 0.4 H PT INR Sodium 142 Potassium 3.3 Chloride 111 H Carbon Dioxide 18 L Anion Gap 16 BUN 27 H Creatinine 0.80 Estim Creat Clear Calc 48.5 Estimated GFR > 60 POC Glucose 104 Random Glucose 87 Calcium 8.4 D Troponin I High Sens TSH Urine Color Urine Appearance Urine pH Ur Specific [place] [employer] Urine Protein Urine Glucose (UA) Urine Ketones Urine Blood Urine Nitrite Ur Leukocyte Esterase Urine RBC Urine WBC Ur Squamous Epith Cells Urine Bacteria Hyaline Casts ECG Interpretation: EKG with atrial fibrillation; nonspecific ST-T changes; some underlying artifact. Ventricular rate 100/Min. Imaging Radiologist's impression: Impressions Chest X-Ray 05/17/23 20:45 IMPRESSION: No acute intrathoracic disease. Assessment and Plan (1) Atrial fibrillation with RVR: Status: Acute (2) Encephalopathy: Status: Acute (3) Elevated troponin: Status: Acute Plan In the EKG, atrial fibrillation with slightly rapid rate. However, on telemetry she is back in sinus rhythm. High sensitivity troponins are 189 and 159. Serum creatinine is 0.8. Chest x-ray shows no acute disease. No CHF/pleural effusions. We can get an echocardiogram for cardiac function assessment. Need to discuss with family. If no major fall issues or other bleeding concerns, then can start Eliquis. With regard to the elevated troponins, probable underlying coronary disease at her age. However, based on comorbidities as well as age, frailty, will hold off any further ischemia workup in this setting. d/w Dr. Farah Time Spent With Patient Time: Total time managing care of this patient today ____ minutes. Procedures Date of Service Date of Service: 05/18/23
--- NOTE | 2023-05-18 09:50 | PM.EVENT ---
Event Note Date of Service: 05/18/23 Event Note: Seen and evaluated more alert and oriented this morning AFib RvR converted back to Sinus Pending Echo Cardio eval, start AC after discussing risks She has hx of falling, to check PT eval Continue antibiotics pending cultures Time Spent With Patient Time: Total time managing care of this patient today ____ minutes.
--- NOTE | 2023-05-18 09:59 | PHA.MEDREC ---
Pharmacy Consult ? Medication Reconciliation Pharmacy has completed the medication reconciliation. Spoke with daughter. Knew all medications except prednisone dose. Will call me later when home with dose and will update then
[2023-05-18 11:51] LABS: Glucose, Whole Blood 85 mg/dL (60-115)
[2023-05-18 16:24] LABS: Glucose, Whole Blood 84 mg/dL (60-115)
[2023-05-18] MEDS: oxyCODONE HCl Immed Release 5 MG TABLET PO (18:39)
[2023-05-18] MEDS: atenoloL 100 MG TABLET PO (18:40)
[2023-05-18 20:09] LABS: Glucose, Whole Blood 127 mg/dL (60-115)
[2023-05-19 03:33] VITALS: BP 137/77; PULSE 65; RESP 18; TEMP 36.1; O2SAT 98
--- NOTE | 2023-05-19 07:00 | CA_ITS ---
Transthoracic Echocardiogram Patient (Last, First, Middle): Trinh Daniel G Gender: Female Date of : 1940 Age: 82 Procedure Date: 05/19/2023 Procedure Type: Transthoracic Echocardiogram Location: [facility] [place] Height: 154.94 cm Weight: 75.3 kg BSA: 1.75 m2 Heart Rate: 69 bpm BP: 132 / 55 mmHg Baggage And Mail Agent: SB Referring MD: Karina Conklin MD Symptoms: afib Study Quality: Adequate w contrast ECG Rhythm: Sinus Conclusions: - The left ventricular systolic function is normal. The visually estimated ejection fraction is >70%. - No obvious valvular pathology seen on this study. Findings Procedure Information Contrast agent, definity, is being given per protocol without apparent complications. Left Ventricle Normal left ventricular cavity size. The left ventricular systolic function is normal. The visually estimated ejection fraction is >70%. There is no evidence of regional wall motion abnormalities. Evidence suggests grade I (mild) diastolic dysfunction. There is mild septal asymmetric hypertrophy. Right Ventricle Normal right ventricular cavity size and systolic function. Atria Both atria are normal in size. Aortic Valve There is a normal trileaflet aortic valve. There is mild calcification of the aortic valve. There is no aortic valve stenosis. There is trace (trivial) aortic valve regurgitation. Mitral Valve The mitral valve appears normal. There is no mitral valve regurgitation. There is no mitral valve stenosis. Pulmonic Valve The pulmonic valve is likely normal. Tricuspid Valve Normal tricuspid valve structure. There is trace tricuspid valve regurgitation. Tricuspid regurgitation envelope is inadequate for calculation of right ventricular systolic pressure. Great Vessels The asc aorta is normal in size. Venous The inferior vena cava is normal in size and collapses greater than 50% with inspiration. Pericardium/Pleural Prominent epicardial adipose tissue noted. There is no evidence of pericardial effusion. Prior Study Comparison No prior study available for comparison. Recommendations, Care & Conclusions No obvious valvular pathology seen on this study. Measurements 2D Linear Measurements IVSd: 1.23 0.6-0.9/0.6-1.0 cm LVIDd: 4.25 3.9-5.3/4.2-5.9 cm LVIDd Index: 2.43 2.4-3.2/2.2-3.1 cm/m2 LVIDs: 2.19 2.0-3.6 cm LVPWd: 0.96 0.7-1.1 cm LA Diam: 3.10 2.7-3.8/3.0-4.0 cm LAIDs Index: 1.77 1.5-2.3 cm/m2 LV Mass: 198.07 67-162/88-224 g LV Mass Index: 113.18 43-95/49-115 g/m2 LVOT Diam: 2.00 3.0+(-)1.3 cm 2D Systolic Function EF 4C: 77.20 >55% EF 2C: 76.50 >55% EF BiP: 77.00 >55% Mitral Valve MV Pk E: 0.72 MV PK A: 0.78 MV Decel Time: 176.00 E/A: 0.90 E'Lateral: 5.98 E'Medial: 5.00 E/E' Med: 14.50 E/E' Lat: 12.10 PHT: 51.00 MVA PHT: 4.31 Decel Lamar: 4.12 Aortic Valve AoV Pk Pawel: 1.15 AoV Pk Grad: 5.00 PATI: 3.45 AI Pk Pawel: 4.52 AI Lamar: 1.49 LVOT LVOT Pk Pawel: 1.12 LVOT Mn Pawel: 0.83 LVOT VTI: 0.27 LVOT Pk Grad: 5.00 LVOT Mn Grad: 3.00 LVOT Diam: 2.00 LVOT Area: 3.14 Diastolic Function MV Pk E: 0.72 MV Pk A: 0.78 E/A: 0.90 E'Medial: 5.00 E/E' Med: 14.50 E' Laterial: 5.98 E/E' Lat: 12.10 Right Ventricle TAPSE (mm): 18.90 TVS' Pawel: 11.50 Tricuspid Valve RA Press: 3.00 Great Vessels Aorta Sinus of Valsalva: 2.80 2.0-3.5 cm Ao Asc: 3.30 2.1-3.4 cm Pulmonary Valve PV Pk Pawel: 0.76 Peak PV Grad: 2.00 Updated in Other Vendor System with Status of Final Chris Ochoa MD electronically signed on 05/19/2023 12:34:25 PM with status of Final
[2023-05-19 07:08] VITALS: BP 139/71; PULSE 66; RESP 18; TEMP 36.7; O2SAT 98
[2023-05-19 07:54] LABS: Glucose, Whole Blood 81 mg/dL (60-115)
[2023-05-19] MEDS: Apixaban 5 MG TABLET PO ×2 (09:10→20:47)
[2023-05-19] MEDS: Potassium Chloride ER 20 MEQ TAB.ER.PRT PO (09:10)
[2023-05-19] MEDS: Escitalopram Oxalate 10 MG TABLET PO (09:10)
[2023-05-19] MEDS: 0.9 % Sodium Chloride Flush 3 ML SYRINGE IVFLUSH ×2 (09:10→20:49)
[2023-05-19] MEDS: atenoloL 100 MG TABLET PO (09:10)
[2023-05-19] MEDS: Atorvastatin Calcium 40 MG TABLET PO (09:10)
--- NOTE | 2023-05-19 10:24 | MHC.CM.PN ---
This CM called pts daughter Norma Yang [phone] for CM intake due tp pts confusion and altered mental status, left message, awaiting return call.
--- NOTE | 2023-05-19 10:36 | PM.PNCARD ---
Subjective Subjective Date of Service: 05/19/23 Interval history: She states she is feeling okay. However, seems confused. Review of Systems Review of Systems Yes all other systems are reviewed and are negative Constitutional: Reports as per HPI and Reports no additional constitutional complaints Eyes: Reports as per HPI and Denies no additional eye complaints Denies system reviewed and no additional complaints, except as documented and Reports as per HPI Cardiovascular: Reports as per HPI, Reports no additional cardiovascular complaints, Denies acrocyanosis, Denies cool extremities, Denies chest pain, Denies leg edema, Denies lightheadedness, Denies palpitations and Denies dyspnea Respiratory: Reports as per HPI, Denies no additional respiratory complaints and Denies dyspnea Gastrointestinal: Reports as per HPI and Denies no additional gastrointestinal complaints Genitourinary: Reports as per HPI Musculoskeletal: Reports no additional musculoskeletal complaints and Reports as per HPI Skin/Breast: Reports system reviewed and no additional complaints, except as docu Reports system reviewed and no additional complaints, except as documented and Reports as per HPI Psychiatric: Reports no additional psychiatric complaints and Reports as per HPI Endocrine: Reports no additional endocrine complaints, Reports as per HPI and Denies palpitations Hematologic/Lymphatic: Reports no additional hematologic/lymphatic complaints and Reports as per HPI Allergic/Immunologic: Reports no additional allergic/immunologic complaints and Reports as per HPI Physical Exam Vital Signs: Last Vital Signs Temp 98.0 F 05/19/23 07:08 Pulse 66 05/19/23 07:08 Resp 18 05/19/23 07:08 BP 139/71 05/19/23 07:08 Pulse Ox 98 05/19/23 07:08 O2 Del Method Room Air 05/19/23 07:08 BMI result Body Mass Index 32.9 Const General: comfortable and no acute distress Orientation/consciousness: No patient oriented x3 HEENT Other: Unremarkable Head: Yes normal to inspection Neck Neck: Yes normal visual inspection Chest Chest palpation & inspection: normal inspection of the chest Resp Auscultation: clear to auscultation bilaterally Cardio Palpation: normal PMI Heart sounds: S1 normal heart sound present, S2 normal heart sound present, no gallops, no murmurs and no rubs GI Palpation (GI): Soft to palpation Back/Spine/Pelvis Other: unremarkable Skin General skin exam: no rashes or lesions noted Neuro General: No patient oriented x3 Extrem General: Yes normal to inspection Psych Mental Status: mental status grossly abnormal Objective Labs and Meds 05/18/23 05:08 05/18/23 05:08 Lab results: Laboratory Results - last 24 hr 05/18/23 05/18/23 05/18/23 11:47 15:57 19:25 POC Glucose 85 84 127 H 05/19/23 07:13 POC Glucose 81 Progress Note: A&P Assessment and plan (1) Atrial fibrillation with RVR: Status: Acute (2) Encephalopathy: Status: Acute (3) Elevated troponin: Status: Acute Plan Cardiac studies reviewed. On telemetry, she is back in normal sinus rhythm. High sensitivity troponins are 189 and 159. Serum creatinine is 0.8. Chest x-ray shows no acute disease. No CHF/pleural effusions. Echocardiogram is still pending. Continue beta-blockers currently on. As long as family is comfortable anticoagulation and no significant fall risk, okay for anticoagulation. With regard to the elevated troponins, probable underlying coronary disease at her age. However, based on comorbidities as well as age, frailty, will hold off any further ischemia workup in this setting. Time Spent With Patient Time: Total time managing care of this patient today 45 minutes. This includes time spent in review of chart, laboratory data, imaging studies, review of telemetry, counseling patient, discussion with hospitalist, RN, documentation, coordination of care. Progress Note: Quality Stroke Does the patient have a stroke diagnosis?: No Procedures Date of Service Date of Service: 05/19/23
--- NOTE | 2023-05-19 11:33 | MHC.CM.PN ---
Patient is documented to be confused; CM spoke with Daughter/Norma @ [phone] and addressed IMM with her (original to be mailed certified letter to Norma and a copy has been placed on the chart). Patient lives in an in-law/basement apartment of her Daughter/Norma's home and she uses a walker to assist with mobility. Patient has a RN visit 1/week (unsure from which agency) and has outpatient POT in [place]. PT is recommending STR and [facility] is the first choice SNF. CM has initiated and will follow for dc planning. Patient is Covid vax x3 and her PCP is Dr. Jordy Tavares.
--- NOTE | 2023-05-19 11:39 | HO.PM.IMPN ---
Subjective Subjective Date of Service: 05/19/23 Interval History: no complaints Physical Exam Vital Signs: Vital Signs: Last Vital Signs Temp 98.0 F 05/19/23 07:08 Pulse 66 05/19/23 07:08 Resp 18 05/19/23 07:08 BP 139/71 05/19/23 07:08 Pulse Ox 98 05/19/23 07:08 O2 Del Method Room Air 05/19/23 07:08 BMI result Body Mass Index 32.9 alert, poor insight, Objective Data Active Medications Acetaminophen (Acetaminophen 325 Mg Tablet) 650 mg PO Q6H PRN PRN Reason: Pain, Mild (Pain Scale 1-3) Last Admin: 05/18/23 05:43 Dose: 650 mg Documented By: JOVANA Apixaban (Apixaban 5 Mg Tablet) 5 mg PO BID [facility] Last Admin: 05/19/23 09:10 Dose: 5 mg Documented By: YONG Atenolol (Atenolol 100 Mg Tablet) 100 mg PO DAILY [facility]; Protocol Last Admin: 05/19/23 09:10 Dose: 100 mg Documented By: YONG Atorvastatin Calcium (Atorvastatin Calcium 40 Mg Tablet) 40 mg PO DAILY [facility] Last Admin: 05/19/23 09:10 Dose: 40 mg Documented By: YONG Dextrose (Dextrose 50 % 25 Gm/50 Ml Syringe) 25 gm IVPUSH Q15M PRN; Protocol PRN Reason: per Hypoglycemia Standing Ord. Escitalopram Oxalate (Escitalopram Oxalate 10 Mg Tablet) 10 mg PO DAILY [facility] Last Admin: 05/19/23 09:10 Dose: 10 mg Documented By: YONG Glucose (Glucose Gel 15 Gm Gel..Gram.) 15 gm PO Q15M PRN; Protocol PRN Reason: per Hypoglycemia Standing Ord. Ceftriaxone Sodium 1 gm/ (Sodium Chloride) 50 mls @ 100 mls/hr IV BEDTIME [facility] Last Infusion: 05/18/23 21:22 Dose: 0 mls/hr Documented By: MAURA Insulin Human Lispro (Insulin Lispro 100 Unit/Ml 3 Ml Vial) 0 unit SUBCUT QIDACHS [facility]; Protocol Last Admin: 05/19/23 07:15 Dose: Not Given Documented By: YONG Non-Admin Reason: No Insulin Coverage Melatonin (Melatonin 3 Mg Tablet) 6 mg PO BEDTIME PRN PRN Reason: Insomnia Ondansetron HCl (Ondansetron Hcl 4 Mg/2 Ml Vial) 4 mg IVPUSH Q8H PRN PRN Reason: Nausea and Vomiting Oxycodone HCl (Oxycodone Hcl Immed Release 5 Mg Tablet) 5 mg PO Q6H PRN PRN Reason: Pain, Severe (Pain Scale 7-10) Last Admin: 05/18/23 18:39 Dose: 5 mg Documented By: WESLY Potassium Chloride (Potassium Chloride Er 20 Meq Tab.Er.Prt) 20 meq PO DAILY [facility] Last Admin: 05/19/23 09:10 Dose: 20 meq Documented By: YONG Sodium Chloride (0.9 % Sodium Chloride Flush 3 Ml Syringe) 3 ml IVFLUSH QSHIFT [facility] Last Admin: 05/19/23 09:10 Dose: 3 ml Documented By: YONG Labs 05/18/23 05:08 05/18/23 05:08 Labs: Laboratory Results - last 24 hr 05/18/23 05/18/23 05/18/23 11:47 15:57 19:25 POC Glucose 85 84 127 H 05/19/23 07:13 POC Glucose 81 Microbiology Microbiology Results: Microbiology 05/18/23 Unknown Urine Culture - Preliminary Urine clean catch - Urine ríos top Gram negative [place] Assessment and Plan (1) Elevated troponin: Status: Acute Plan 82F PMH DM, mood disorder, chronic back pain, htn, presented with ams, found to have uti and new onset afib acute metaboli encephalopathy due to UTI Continue IV ceftriaxone, follow-up cultures, urine culture growing Gram-negative rods New onset atrial fibrillation with rapid ventricular response Converted to sinus Continue atenolol 100 mg daily, started on apixaban 5 mg b.i.d. Mood disorder Continue Lexapro Diabetes Insulin DVT prophylaxis-on Eliquis DNR/DNI reason for continued hospitalization:awaiting cultures Time Spent With Patient Time: Total time managing care of this patient today ____ minutes. Quality Stroke Does the patient have a stroke diagnosis?: No VTE Prior VTE?: No VTE Risk Level:: Medical - moderate - high VTE Device Contraindication: Treatment Not Indicated VTE Drug Contraindication: N/A - Med Ordered
--- NOTE | 2023-05-19 11:39 | MHC.CM.PN ---
Patient's Daughter/Margaret @ [phone] is HCP.
[2023-05-19 11:57] VITALS: BMI 32.9
[2023-05-19 11:58] VITALS: BP 149/66; PULSE 60; RESP 18; TEMP 36.6; O2SAT 98
--- NOTE | 2023-05-19 11:59 | MHC.CLN ---
PT WITH INCREASED NUTRITION RISK R/T PRESSURE INJURY DIET RX: REGULAR-RECOMMEND 1800DM DIET R/T DM RECOMMEND ADDING ENSURE MAX TO PROMOTE WOUND HEALING SUPP PROVIDES 300KCALS, 60G PROTEIN MONITOR PO INTAKE CLOSELY SEE ALSO FULL CLINICAL NUTRITION ASSESSMENT
[2023-05-19 12:18] LABS: Glucose, Whole Blood 93 mg/dL (60-115)
[2023-05-19 15:57] VITALS: BP 138/65; PULSE 65; RESP 18; TEMP 36.7; O2SAT 99
[2023-05-19 16:29] LABS: Glucose, Whole Blood 111 mg/dL (60-115)
[2023-05-19 20:00] VITALS: BP 139/59; PULSE 70; RESP 18; TEMP 37.1; O2SAT 96
[2023-05-19 20:25] LABS: Glucose, Whole Blood 97 mg/dL (60-115)
[2023-05-19] MEDS: cefTRIAXone sodium 1 GM in 0.9 % Sodium Chloride 50 ML IV (20:47)
[2023-05-19 23:09] VITALS: BP 144/80; PULSE 68; RESP 18; TEMP 36.2; O2SAT 97
[2023-05-20 03:43] VITALS: BP 140/72; PULSE 63; RESP 18; TEMP 36.5; O2SAT 98
[2023-05-20 07:12] LABS: Glucose, Whole Blood 82 mg/dL (60-115)
[2023-05-20 07:23] VITALS: BP 151/71; PULSE 60; RESP 20; TEMP 36.6; O2SAT 100
[2023-05-20] MEDS: Escitalopram Oxalate 10 MG TABLET PO (08:30)
[2023-05-20] MEDS: Potassium Chloride ER 20 MEQ TAB.ER.PRT PO (08:30)
[2023-05-20] MEDS: Atorvastatin Calcium 40 MG TABLET PO (08:30)
[2023-05-20] MEDS: Apixaban 5 MG TABLET PO ×2 (08:30→20:10)
[2023-05-20] MEDS: atenoloL 100 MG TABLET PO (08:30)
[2023-05-20] MEDS: 0.9 % Sodium Chloride Flush 3 ML SYRINGE IVFLUSH (08:31)
[2023-05-20 11:08] LABS: Glucose, Whole Blood 94 mg/dL (60-115)
--- NOTE | 2023-05-20 11:20 | P.DS_ITS ---
DS: Providers Provider Date of Service: 05/20/23 Date of admission: 05/18/23 03:18 Primary care physician: Jordy Tavares MD Consults: 05/18/23 03:20 Consult to Cardiology Routine [place] [facility] [place] Reason for consultation: afib Has provider been notified: Yes DS: Diagnosis Discharge Diagnosis (1) Elevated troponin: Status: Acute DS: Summary Hospital Course Hospital Course: from initial hpi: 82-year-old female with pertinent history of jgc-jeumhge-ziuvvopja diabetes mellitus, mood disorder, chronic back pain, essential hypertension who was sent to the emergency department for evaluation of altered mentation and generalized weakness.? Patient is a poor historian and does not know why she is in the hospital.? She is only oriented to self.? History obtained by ER provider.? Patient was noted to be intermittently confused by family and she was sent for further evaluation.? Also noted to have poor appetite, increased lethargy and generalized weakness.? Unable to obtain review of systems. In the emergency department, urine was concerning for UTI and patient found to be in AFib with RVR hospital course: Patient was admitted for acute metabolic encephalopathy due to urinary tract infection. Urine culture grew E coli. She was treated with ceftriaxone will be transitioned to 5 more days of oral cefuroxime. Also presented with new onset atrial fibrillation with rapid ventricular response. Patient converted to sinus rhythm. She was continued on atenolol 100 mg daily and started on apixaban 5 mg twice daily. For mood disorder she was continue Lexapro. For diabetes she was continue insulin. [facility]. Time Spent with Patient Time attestation: Total time managing care of this patient today ____ minutes. Discharge coordination time: Greater than 30 minutes Quality: Safe Use of Opioids Does Pt have an Active Cancer Diagnosis on the Problem List?: No Quality: Stroke Does the patient have a stroke diagnosis?: No Physical Exam Vital Signs: Vital Signs: Last Vital Signs Temp 97.8 F 05/20/23 07:23 Pulse 60 05/20/23 07:23 Resp 20 05/20/23 07:23 BP 151/71 H 05/20/23 07:23 Pulse Ox 100 05/20/23 07:23 O2 Del Method Room Air 05/20/23 07:23 BMI result Body Mass Index 32.9 alert, poor insight, DS: Data Data Completed and Pending Labs on day of discharge: Laboratory Results - last 24 hr 05/19/23 05/19/23 05/19/23 12:00 16:24 20:16 POC Glucose 93 111 97 05/20/23 05/20/23 07:08 11:05 POC Glucose 82 94 Discharge Plan Discharge Anticipated Discharge Date/Time: 05/20/23 11:18 Patient Disposition: Xfer SNF Discharge Diagnosis: afib, uti Referrals: Jordy Tavares MD [Primary Care Provider] - 1 Week Discharge Medications: New cefuroxime axetil 500 mg Tablet 500 mg PO Q12H Qty: 0 0RF Eliquis 5 mg Tablet 5 mg PO BID Qty: 0 0RF Continued atorvastatin 40 mg Tablet 40 mg PO DAILY atenolol 100 mg Tablet 100 mg PO DAILY citalopram 10 mg Tablet 20 mg PO DAILY glipizide 10 mg Tablet 10 mg PO BID oxycodone 15 mg Tablet 7.5 mg PO Q6H prednisone 1 mg Tablet 0 mg PO TID potassium chloride 20 mEq Tablet Extended Release 20 meq PO DAILY Discharge Orders: Discharge Order (Routine); Ordered 05/20/23 Ordered By: Braulio Carlson Diet: Advance to usual diet Activity on Discharge: As tolerated Stand Alone Forms: Patient Portal Discharge page Care Plan Goals: recovery Health Concerns: new afib, uti Plan of Treatment: start eliquis, 5 more days ceftin Assessment: see above
--- NOTE | 2023-05-20 11:23 | MHC.CM.PN ---
Patient has been accepted at her first choice SNF/[facility]; they will have a bed for Patient tomorrow and CM will confirm with them tomorrow that Patient is medically cleared. CM will follow.
--- NOTE | 2023-05-20 11:24 | HO.PM.IMPN ---
Subjective Subjective Date of Service: 05/20/23 Interval History: no complaints Physical Exam Vital Signs: Vital Signs: Last Vital Signs Temp 97.8 F 05/20/23 07:23 Pulse 60 05/20/23 07:23 Resp 20 05/20/23 07:23 BP 151/71 H 05/20/23 07:23 Pulse Ox 100 05/20/23 07:23 O2 Del Method Room Air 05/20/23 07:23 BMI result Body Mass Index 32.9 alert, poor insight, Objective Data Active Medications Acetaminophen (Acetaminophen 325 Mg Tablet) 650 mg PO Q6H PRN PRN Reason: Pain, Mild (Pain Scale 1-3) Last Admin: 05/18/23 05:43 Dose: 650 mg Documented By: JOVANA Apixaban (Apixaban 5 Mg Tablet) 5 mg PO BID [facility] Last Admin: 05/20/23 08:30 Dose: 5 mg Documented By: YONG Atenolol (Atenolol 100 Mg Tablet) 100 mg PO DAILY [facility]; Protocol Last Admin: 05/20/23 08:30 Dose: 100 mg Documented By: YONG Atorvastatin Calcium (Atorvastatin Calcium 40 Mg Tablet) 40 mg PO DAILY [facility] Last Admin: 05/20/23 08:30 Dose: 40 mg Documented By: YONG Cefuroxime Axetil (Cefuroxime Axetil 500 Mg Tablet) 500 mg PO Q12H [facility] Last Admin: 05/20/23 08:30 Dose: 500 mg Documented By: YONG Dextrose (Dextrose 50 % 25 Gm/50 Ml Syringe) 25 gm IVPUSH Q15M PRN; Protocol PRN Reason: per Hypoglycemia Standing Ord. Escitalopram Oxalate (Escitalopram Oxalate 10 Mg Tablet) 10 mg PO DAILY [facility] Last Admin: 05/20/23 08:30 Dose: 10 mg Documented By: YONG Glucose (Glucose Gel 15 Gm Gel..Gram.) 15 gm PO Q15M PRN; Protocol PRN Reason: per Hypoglycemia Standing Ord. Insulin Human Lispro (Insulin Lispro 100 Unit/Ml 3 Ml Vial) 0 unit SUBCUT QIDACHS [facility]; Protocol Last Admin: 05/20/23 07:51 Dose: Not Given Documented By: YONG Non-Admin Reason: No Insulin Coverage Melatonin (Melatonin 3 Mg Tablet) 6 mg PO BEDTIME PRN PRN Reason: Insomnia Ondansetron HCl (Ondansetron Hcl 4 Mg/2 Ml Vial) 4 mg IVPUSH Q8H PRN PRN Reason: Nausea and Vomiting Oxycodone HCl (Oxycodone Hcl Immed Release 5 Mg Tablet) 5 mg PO Q6H PRN PRN Reason: Pain, Severe (Pain Scale 7-10) Last Admin: 05/18/23 18:39 Dose: 5 mg Documented By: WESLY Potassium Chloride (Potassium Chloride Er 20 Meq Tab.Er.Prt) 20 meq PO DAILY [facility] Last Admin: 05/20/23 08:30 Dose: 20 meq Documented By: YONG Sodium Chloride (0.9 % Sodium Chloride Flush 3 Ml Syringe) 3 ml IVFLUSH QSHIFT [facility] Last Admin: 05/20/23 08:31 Dose: 3 ml Documented By: YONG Labs 05/18/23 05:08 05/18/23 05:08 Labs: Laboratory Results - last 24 hr 05/19/23 05/19/23 05/19/23 12:00 16:24 20:16 POC Glucose 93 111 97 05/20/23 05/20/23 07:08 11:05 POC Glucose 82 94 Microbiology Microbiology Results: Microbiology 05/18/23 Unknown Urine Culture - Final Urine clean catch - Urine ríos top Escherichia coli Assessment and Plan (1) Elevated troponin: Status: Acute Plan 82F PMH DM, mood disorder, chronic back pain, htn, presented with ams, found to have uti and new onset afib acute metaboli encephalopathy due to UTI ecoli change to po ceftin back to baseline New onset atrial fibrillation with rapid ventricular response Converted to sinus Continue atenolol 100 mg daily, started on apixaban 5 mg b.i.d. Mood disorder Continue Lexapro Diabetes Insulin DVT prophylaxis-on Eliquis DNR/DNI reason for continued hospitalization:awaiting bed Time Spent With Patient Time: Total time managing care of this patient today ____ minutes. Quality Stroke Does the patient have a stroke diagnosis?: No VTE Prior VTE?: No VTE Risk Level:: Medical - moderate - high VTE Device Contraindication: Treatment Not Indicated VTE Drug Contraindication: N/A - Med Ordered
[2023-05-20 11:33] VITALS: BP 123/62; PULSE 69; RESP 20; TEMP 36.1; O2SAT 97
[2023-05-20 15:51] VITALS: BP 130/60; PULSE 69; RESP 18; TEMP 36.2; O2SAT 94
[2023-05-20 16:27] LABS: Glucose, Whole Blood 113 mg/dL (60-115)
--- NOTE | 2023-05-20 17:02 | HO.SKINPHOTO ---
Location:R buttocks Category: Pressure Injury Stage: II Length: 2.3 Width: 1.2 Depth: cm Location: R Buttock Category: Pressure Injury Stage: II Length: 2.0 Width: 1.0 Depth: cm Location: L Buttock Category: Pressure Injury Stage: II Length: 1.5 Width: 1.0 Depth: cm
[2023-05-20 19:41] VITALS: BP 146/63; PULSE 85; RESP 20; TEMP 36.7; O2SAT 95
[2023-05-20 20:09] LABS: Glucose, Whole Blood 284 mg/dL (60-115)
[2023-05-20] MEDS: Insulin Lispro 100 UNIT/ML 3 ML VIAL SUBCUT (20:28)
[2023-05-20 21:51] LABS: Glucose, Whole Blood 250 mg/dL (60-115)
[2023-05-20 23:00] VITALS: BP 140/64; PULSE 78; RESP 18; TEMP 36.9; O2SAT 99
[2023-05-20] MEDS: oxyCODONE HCl Immed Release 5 MG TABLET PO (23:52)
[2023-05-21 03:33] VITALS: BP 138/64; PULSE 67; RESP 18; TEMP 36.4; O2SAT 96
[2023-05-21] MEDS: oxyCODONE HCl Immed Release 5 MG TABLET PO ×2 (05:53→12:49)
[2023-05-21 07:23] LABS: Glucose, Whole Blood 100 mg/dL (60-115)
[2023-05-21 07:25] VITALS: BP 141/77; PULSE 73; RESP 20; TEMP 36.1; O2SAT 98
--- NOTE | 2023-05-21 08:43 | P.CDIM_ITS ---
PROVIDER RESPONSE TEXT: To clarify, the appropriate diagnosis supported by the clinical indicators: Stage 2 pressure ulcer left buttock QUERY TEXT: PHYSICIAN'S DOCUMENTATION REQUEST Date of Query: 05/21/2023 07:51 AM EDT Patient Name: Trinh Daniel Admit Date: 05/18/2023 Dear Braulio Carlson, A review of the medical record indicates additional documentation may be needed. Please review below and update the documentation accordingly. Clinical Indicators: Per Nursing Pressure Injury Assessment 05/20/23: Left buttock stage 2 Based on the above, could you clarify the appropriate diagnosis, if significant, that supports the ab ove abnormalities and additional evaluation, monitoring, and/or treatment rendered: Stage 2 pressure ulcer left buttock Other ulcer left buttock, please specify type of ulcer Other (explain)Clinically unable to determine (explain)Thank you, Rach Jain RN Use of terms such as suspected, likely, concern for, or probable (associated with a specific diagnosi s that is being evaluated, monitored, or treated as if it exists) are acceptable and can be coded in the inpatient se tting, when documented at the time of discharge. Please use your independent medical judgment in providing your response. THIS QUERY IS PART OF THE PERMANENT MEDICAL RECORD
--- NOTE | 2023-05-21 08:43 | P.CDIM_ITS ---
PROVIDER RESPONSE TEXT: To clarify, the appropriate diagnosis supported by the clinical indicators: Stage 2 pressure ulcer right butttock QUERY TEXT: PHYSICIAN'S DOCUMENTATION REQUEST Date of Query: 05/21/2023 07:55 AM EDT Patient Name: Trinh Daniel Admit Date: 05/18/2023 Dear Braulio Carlson, A review of the medical record indicates additional documentation may be needed. Please review below and update the documentation accordingly. Clinical Indicators: Per Nursing Pressure Injury Assessment 05/20/23: Right buttock stage 2 Based on the above, could you clarify the appropriate diagnosis, if significant, that supports the ab ove abnormalities and additional evaluation, monitoring, and/or treatment rendered: Stage 2 pressure ulcer right butttock Other type of ulcer right buttock, please specify type Condition 3 (please specify) Labs indicate a diagnosis of (please specify) Other (explain)Clinically unable to determine (explain)Thank you, Rach Jain RN Use of terms such as suspected, likely, concern for, or probable (associated with a specific diagnosi s that is being evaluated, monitored, or treated as if it exists) are acceptable and can be coded in the inpatient se tting, when documented at the time of discharge. Please use your independent medical judgment in providing your response. THIS QUERY IS PART OF THE PERMANENT MEDICAL RECORD
[2023-05-21] MEDS: Atorvastatin Calcium 40 MG TABLET PO (09:38)
[2023-05-21] MEDS: Potassium Chloride ER 20 MEQ TAB.ER.PRT PO (09:38)
[2023-05-21] MEDS: Apixaban 5 MG TABLET PO (09:38)
[2023-05-21] MEDS: atenoloL 100 MG TABLET PO (09:38)
[2023-05-21] MEDS: 0.9 % Sodium Chloride Flush 3 ML SYRINGE IVFLUSH (09:39)
[2023-05-21] MEDS: Escitalopram Oxalate 10 MG TABLET PO (09:39)
--- NOTE | 2023-05-21 10:23 | MHC.CM.PN ---
Addendum entered by Hina Hercules 05/21/23 13:24: PTS DAUGHTER BROUGHT IN A COPY OF HER HCP WHICH WAS UPLOADED TO [facility] AND SENT TO THE SNF ANOTHER COPY WAS PLACED IN CHART PT IS SET FOR BLS TRANSPORT VIA [facility] AT 1700 HOURS. PT, FAMILY, AND RN AWARE Original Note: PT CLEARED TO DC TO [facility] TODAY [facility] IS OFFERING A BED PENDING A COPY OF PTS HCP CM ATTEMPTED TO REACH PTS DAUGHTER/HCP, CHRISTOPHER [phone] TO REQUEST A COPY, HOWEVER THE CALL WAS DISCONNECTED X 2. CM WILL REATTEMPT
[2023-05-21] MEDS: Acetaminophen 325 MG TABLET 650 MG PO (10:26)
[2023-05-21 11:12] LABS: Glucose, Whole Blood 138 mg/dL (60-115)
[2023-05-21 11:14] VITALS: BP 128/56; PULSE 73; RESP 18; TEMP 36.6; O2SAT 99
--- NOTE | 2023-05-21 13:36 | P.CONWO_ITS ---
History of Present Illness Data of Consult Service Date: 05/21/23 Requesting physician: Braulio Carlson Primary Care Provider: Jordy Tavares MD [facility] Reason for consult: stage 2 pressure injury, bilateral buttocks [id number]: 82-year-old female who comes from home, per her report with support from her daughters. She had altered mental status. She was treated for AFib with RVR and UTI. She is slated for subacute transfer following completion of this hospitalization. She has hhl-gzhkztt-kvkaddztj diabetes mellitus type 2. We are asked to assess the buttock ulcers. There is a walker at the bedside. She denies impaired mobility at home. Review of Systems Review of Systems: She tells me her appetite is terrible. She does not have urinary continence at home according to her report. [facility] Medical History Chronic back pain Mood disorder Non-insulin dependent type 2 diabetes mellitus Family History (Updated 05/18/23 @ 09:35 by Chris Ochao MD) Unknown No problems noted. Social History Household Members: Family Housing: House Do you presently have visiting nurse or other home services: Yes Alcohol intake: never Patient Tobacco Use Status: Former Tobacco user service: No Meds Allergies Allergy/AdvReac Type Severity Reaction Status Date / Time No Known Allergies Allergy Verified 05/17/23 20:44 Active Medications: Current Medications Acetaminophen (Acetaminophen 325 Mg Tablet) 650 mg PO Q6H PRN PRN Reason: Pain, Mild (Pain Scale 1-3) Last Admin: 05/21/23 10:26 Dose: 650 mg Apixaban (Apixaban 5 Mg Tablet) 5 mg PO BID [facility] Last Admin: 05/21/23 09:38 Dose: 5 mg Atenolol (Atenolol 100 Mg Tablet) 100 mg PO DAILY [facility]; Protocol Last Admin: 05/21/23 09:38 Dose: 100 mg Atorvastatin Calcium (Atorvastatin Calcium 40 Mg Tablet) 40 mg PO DAILY [facility] Last Admin: 05/21/23 09:38 Dose: 40 mg Cefuroxime Axetil (Cefuroxime Axetil 500 Mg Tablet) 500 mg PO Q12H [facility] Last Admin: 08/04/23 09:38 Dose: 500 mg Dextrose (Dextrose 50 % 25 Gm/50 Ml Syringe) 25 gm IVPUSH Q15M PRN; Protocol PRN Reason: per Hypoglycemia Standing Ord. Escitalopram Oxalate (Escitalopram Oxalate 10 Mg Tablet) 10 mg PO DAILY [facility] Last Admin: 05/21/23 09:39 Dose: 10 mg Glucose (Glucose Gel 15 Gm Gel..Gram.) 15 gm PO Q15M PRN; Protocol PRN Reason: per Hypoglycemia Standing Ord. Insulin Human Lispro (Insulin Lispro 100 Unit/Ml 3 Ml Vial) 0 unit SUBCUT QIDACHS [facility]; Protocol Last Admin: 05/21/23 11:56 Dose: Not Given Melatonin (Melatonin 3 Mg Tablet) 6 mg PO BEDTIME PRN PRN Reason: Insomnia Ondansetron HCl (Ondansetron Hcl 4 Mg/2 Ml Vial) 4 mg IVPUSH Q8H PRN PRN Reason: Nausea and Vomiting Oxycodone HCl (Oxycodone Hcl Immed Release 5 Mg Tablet) 5 mg PO Q6H PRN PRN Reason: Pain, Severe (Pain Scale 7-10) Last Admin: 05/21/23 12:49 Dose: 5 mg Potassium Chloride (Potassium Chloride Er 20 Meq Tab.Er.Prt) 20 meq PO DAILY [facility] Last Admin: 05/21/23 09:38 Dose: 20 meq Sodium Chloride (0.9 % Sodium Chloride Flush 3 Ml Syringe) [facility] Last Admin: 05/21/23 09:39 Dose: 3 ml Home Medications Medication Instructions Recorded Confirmed Last Taken Type atenolol 100 mg tablet 100 mg PO DAILY 05/18/23 05/18/23 05/16/23 History atorvastatin 40 mg tablet 40 mg PO DAILY 05/18/23 05/18/23 05/16/23 History citalopram 10 mg tablet 20 mg PO DAILY 05/18/23 05/18/23 05/16/23 History glipizide 10 mg tablet 10 mg PO BID 05/18/23 05/18/23 05/16/23 History oxycodone 15 mg tablet 7.5 mg PO Q6H 05/18/23 05/18/23 05/16/23 History potassium chloride 20 mEq 20 meq PO DAILY 05/18/23 05/18/23 05/16/23 History tablet,extended release prednisone 1 mg tablet 0 mg PO TID 05/18/23 Unknown History Physical Exam Vital Signs and Narrative: Vital Signs: Last Vital Signs Temp 98 F 05/21/23 11:14 Pulse 73 05/21/23 11:14 Resp 18 05/21/23 11:14 BP 128/56 L 05/21/23 11:14 Pulse Ox 99 05/21/23 11:14 O2 Del Method Room Air 05/21/23 11:14 BMI result Body Mass Index 32.9 Tells me her name is Trinh . Tells me the month is May:. Follows commands briskly in accurately. Rolls onto her left side independently without assistance. Urinary wick is observed. Symmetric erythema which is blanching in nature is observed deep within the bilateral gluteal articulation of the dermis. Nummular areas of skin breakdown or full-thickness. There is no periwound ischemia to suggest pressure etiology or DTI. Urinary incontinence suggest friction and shear. Results Labs 05/18/23 05:08 05/18/23 05:08 Labs: Laboratory Results - last 24 hr 05/20/23 05/20/23 05/20/23 16:23 20:06 21:47 POC Glucose 113 284 H 250 H 05/21/23 05/21/23 07:02 10:58 POC Glucose 100 138 H Assessment and Plan (1) Dermatitis, unspecified: Status: Acute Plan 82-year-old female with unclear debility, improvement mental status with treatment of UTI and AFib with RVR. Recommend topical zinc oxide to the b uttocks and alginate to open areas with progression of mobility to ambulation, least assistive device, stair navigation if appropriate. Her appetite is poor. An appetite stimulant might be helpful. She is to take boost at home and this might be reasonable place to start to promote wound healing. If she is able to get home, we can see her in the wound clinic in follow-up. Otherwise ongoing care is deferred to the subacute facility where she is transferred to. This patient was seen under the supervision of Dr. Arita who was available but did not see the patient. Time Spent With Patient Time: Total time managing care of this patient today ____ minutes.
[2023-05-21 15:26] VITALS: BP 130/60; PULSE 69; RESP 14; TEMP 36.3; O2SAT 99
[2023-05-21 16:12] LABS: Glucose, Whole Blood 165 mg/dL (60-115)
[2023-05-21] MEDS: Insulin Lispro 100 UNIT/ML 3 ML VIAL SUBCUT (16:31)
== END 2023-05-21 17:20 | disposition skilled nursing facility (03) | DRG 308 ==
LOC: HO.ED 05-18 02:32 → HO.EDOVER 05-18 03:22 → HO.IMC 05-18 11:42
PROVIDERS: Student in an Organized Health Care Education/Training Program; Admitting Provider Student in an Organized Health Care Education/Training Program; Emergency Provider Emergency Medicine; PCP Internal Medicine; Visit Provider Internal Medicine
DX: I48.91 Unspecified atrial fibrillation (principal); G93.41 Metabolic encephalopathy; N39.0 Urinary tract infection, site not specified; B96.20 Unspecified Escherichia coli [E. coli] as the cause of diseases classified elsewhere; L89.322 Pressure ulcer of left buttock, stage 2; L89.312 Pressure ulcer of right buttock, stage 2; F39 Unspecified mood [affective] disorder; Z66 Do not resuscitate; E11.9 Type 2 diabetes mellitus without complications; M54.9 Dorsalgia, unspecified; G89.29 Other chronic pain; Z79.84 Long term (current) use of oral hypoglycemic drugs; Z79.899 Other long term (current) drug therapy
CPT/HCPCS: 36415; 71045; 80048; 81001; 82947; 84443; 84484; 85025; 85610; 87086; 87088; 87186; 93005; 93306; 97162; 97530; 99285; J0696; J1650; Q9957

== ENCOUNTER → 2023-05-17 20:29 | Outpatient (BNV) | payer MEDICARE, SELFPAY | PROVIDERS: Admitting Provider Student in an Organized Health Care Education/Training Program; Emergency Provider Emergency Medicine; PCP Internal Medicine; Visit Provider Internal Medicine | DX: I48.91 Unspecified atrial fibrillation (principal) | CPT/HCPCS: 93010 ==

== ENCOUNTER 2023-05-18 03:18 | Outpatient (BNV) | payer MEDICARE, SELFPAY | END 2023-05-19 07:00 | PROVIDERS: Admitting Provider Student in an Organized Health Care Education/Training Program; Emergency Provider Emergency Medicine; PCP Internal Medicine; Visit Provider Internal Medicine | DX: I35.8 Other nonrheumatic aortic valve disorders (principal) | CPT/HCPCS: 93306 ==

== ENCOUNTER → 2023-05-18 03:18 | Outpatient (BNV) | payer MEDICARE, SELFPAY | PROVIDERS: Admitting Provider Student in an Organized Health Care Education/Training Program; Emergency Provider Emergency Medicine; PCP Internal Medicine; Visit Provider Student in an Organized Health Care Education/Training Program | DX: R77.8 Other specified abnormalities of plasma proteins (principal) | CPT/HCPCS: 99222; 99232; 99239; 99499 ==

== ENCOUNTER → 2023-05-18 03:18 | Outpatient (BNV) | payer MEDICARE, SELFPAY | PROVIDERS: Admitting Provider Student in an Organized Health Care Education/Training Program; Emergency Provider Emergency Medicine; PCP Internal Medicine; Visit Provider Internal Medicine | DX: I48.91 Unspecified atrial fibrillation (principal); G93.40 Encephalopathy, unspecified; R77.8 Other specified abnormalities of plasma proteins | CPT/HCPCS: 99222; 99232 ==

== ENCOUNTER 2023-07-28 14:22 | Outpatient (REF) | payer MEDICARE, SELFPAY ==
[2023-07-28 15:59] LABS: MANUAL DIFF FLAG NO
[2023-07-28 16:13] LABS: Basophils Percent Auto 0.1 % (0-2); Hematocrit 36.6 % (37.0-47.0); Hemoglobin 11.6 g/dl (12.0-16.0); Imm Gran Pct Auto 0.6 % (0.0-0.4); Lymphocytes Absolute Auto 1.2 X10*3/uL (1.2-4.9); Lymphocytes Percent Auto 7.5 % (20-40); Mean Corpuscular HGB Conc 31.7 g/dl (31.0-35.0); Mean Corpuscular Hemoglobin 29.4 pg (27.0-33.0); Mean Corpuscular Volume 92.9 fL (80.0-98.0); Mean Platelet Volume 10.6 fL (9.4-12.3); Monocytes Absolute Auto 0.8 X10*3/uL (0.1-1.2); Monocytes Percent Auto 4.8 % (2-11); Neutrophils Absolute Auto 14.4 x10*3/uL (2.0-8.3); Platelet Count 304 X10*3/uL (160-400); Red Blood Count 3.94 X10*6/uL (4.20-5.50); White Blood Count 16.5 X10*3/uL (4.8-10.8)
== END 2023-07-28 14:23 | disposition home or self-care (01) ==
LOC: HO.HMGCLDS 14:22
PROVIDERS: PCP Internal Medicine; Visit Provider Internal Medicine
DX: R53.83 Other fatigue (principal)
CPT/HCPCS: 36415; 85025

== ENCOUNTER 2023-07-29 13:56 | Outpatient (REF) | payer MEDICARE, SELFPAY ==
--- NOTE | ~2023-07-29 | XR_ITS ---
EXAMINATION: XR CHEST CLINICAL INFORMATION: Cough. COMPARISON: 05/17/2023. TECHNIQUE: 2 views of the chest were obtained. FINDINGS: The cardiomediastinal silhouette is within normal limits and stable. There is no focal lung consolidation or pleural effusion. The bony structures and soft tissues are unremarkable. XR/XR chest 2V IMPRESSION: No active cardiopulmonary disease.
== END 2023-07-29 13:57 | disposition home or self-care (01) ==
LOC: HO.HMGCX 13:56
PROVIDERS: PCP Internal Medicine; Visit Provider Internal Medicine
DX: R05.9 Cough, unspecified (principal)
CPT/HCPCS: 71046

== ENCOUNTER 2023-08-04 10:40 | Outpatient (REF) | payer MEDICARE, SELFPAY ==
[2023-08-04 13:51] LABS: MANUAL DIFF FLAG NO
[2023-08-04 14:03] LABS: Basophils Percent Auto 0.1 % (0-2); Hematocrit 36.3 % (37.0-47.0); Hemoglobin 11.5 g/dl (12.0-16.0); Imm Gran Abs Auto 0.05 X10*3/uL (0.00-0.03); Imm Gran Pct Auto 0.5 % (0.0-0.4); Lymphocytes Percent Auto 9.4 % (20-40); Mean Corpuscular HGB Conc 31.7 g/dl (31.0-35.0); Mean Corpuscular Hemoglobin 29.5 pg (27.0-33.0); Mean Corpuscular Volume 93.1 fL (80.0-98.0); Mean Platelet Volume 10.8 fL (9.4-12.3); Monocytes Absolute Auto 0.7 X10*3/uL (0.1-1.2); Monocytes Percent Auto 6.3 % (2-11); Neutrophils Absolute Auto 9.2 x10*3/uL (2.0-8.3); Neutrophils Percent Auto 83.7 % (45-73); Platelet Count 200 X10*3/uL (160-400); Red Cell Distribution Width 13.2 % (11.0-16.0)
== END 2023-08-04 10:41 | disposition home or self-care (01) ==
LOC: HO.HVNA 10:40
PROVIDERS: Visit Provider Internal Medicine
DX: I10 Essential (primary) hypertension (principal); N39.0 Urinary tract infection, site not specified
CPT/HCPCS: 36415; 85025

== ENCOUNTER 2023-09-02 09:20 | Outpatient (REF) | payer MEDICARE, SELFPAY ==
[2023-09-02 13:49] LABS: Glucose Fasting 149 mg/dL (60-99)
== END 2023-09-02 09:21 | disposition home or self-care (01) ==
LOC: HO.HMGCLNP 09:20
PROVIDERS: Visit Provider Internal Medicine
DX: E11.9 Type 2 diabetes mellitus without complications (principal)
CPT/HCPCS: 82947